=== PATIENT | male | born 1995 | race Caucasian/White ===

== ENCOUNTER 2022-03-02 11:01 | Emergency (ER) | payer OTHER ==
[2022-03-02] MEDS ORDERED: HYDROmorphone 1 MG/ML Syringe IM ONE (11:48)
== END 2022-03-02 14:20 | disposition home or self-care (01) ==
LOC: JD.ED 11:01
DX: M53.3 Sacrococcygeal disorders, not elsewhere classified (principal); W18.30XA Fall on same level, unspecified, initial encounter
CPT/HCPCS: 72100; 72220; 96372; 99283; J1170